=== PATIENT | female | born 1950 | race Caucasian/White ===

== ENCOUNTER 2017-09-18 14:25 | Inpatient (IN) | payer OTHER ==
[~2017-09-18] VITALS: Ht 167.6 cm; Wt 59.0 kg
[2017-09-18] MEDS ORDERED: CALTRATE 600+D1 EAC1 (14:48)
== END 2017-09-22 13:51 | disposition home or self-care (01) | DRG 203 ==
LOC: ER 14:25 → MEDI 09-19 12:05
PROC: 3E0F7GC Introduction of Other Therapeutic Substance into Respiratory Tract, Via Natural or Artificial Opening (ICD-10-PCS; principal; 2017-09-19)
DX: J45.41 Moderate persistent asthma with (acute) exacerbation (principal); J20.9 Acute bronchitis, unspecified; F17.210 Nicotine dependence, cigarettes, uncomplicated

== ENCOUNTER 2020-06-25 09:23 | Emergency (ER) | payer OTHER ==
[~2020-06-25] VITALS: Ht 167.6 cm; Wt 60.3 kg
[~2020-06-25 09:23] MED LIST: CALTRATE 600+D1 EAC1
[2020-06-25] MEDS ORDERED: DUI500 PO (15:27)
== END 2020-06-25 15:42 | disposition home or self-care (01) ==
LOC: ER 09:23
DX: N39.0 Urinary tract infection, site not specified (principal); B96.20 Unspecified Escherichia coli [E. coli] as the cause of diseases classified elsewhere; Z03.818 Encounter for observation for suspected exposure to other biological agents ruled out